=== PATIENT | male | born 2000 | race Caucasian/White ===

== ENCOUNTER 2025-01-28 21:30 | Emergency (ER) | payer OTHER ==
[~2025-01-28] VITALS: Ht 170.2 cm; Wt 96.0 kg
[2025-01-28 21:44] VITALS: O2SAT 97
[2025-01-28 23:21] LABS: BASOPHILS % 0.3 % (0.0-2.0); EOSINOPHILS % 0.4 % (0.0-5.0); HEMATOCRIT. 43.9 % (42.0-52.0); HEMOGLOBIN. 14.5 g/dL (14.0-18.0); LYMPHOCYTES % 13.7 % (20.0-50.0); MEAN CORPUSCULAR HEMOGLOBIN 26.6 pg (28.0-32.0); MEAN CORPUSCULAR VOLUME 80.7 fL (80.0-94.0); MEAN PLATELET VOLUME 8.6 fl (7.4-10.4); MONOCYTES % 4.1 % (2.0-8.0); NEUTROPHILS % 81.5 % (40.0-76.0); PLATELET 283 x1000/uL (130-400); RED BLOOD CELL COUNT 5.43 mill/uL (4.7-6.1); RED CELL DISTRIBUTION WIDTH 13.7 % (11.6-14.6); WHITE BLOOD COUNT 13.7 x1000/uL (4.5-11.0)
[2025-01-28 23:23] LABS: CHLORIDE 109 mEq/L (98-107); POTASSIUM 3.9 mEq/L (3.5-5.1); SODIUM 144 mEq/L (136-145)
[2025-01-28 23:24] LABS: CALCIUM 9.1 mg/dL (8.7-10.4); CARBON DIOXIDE 23 mEq/L (21-32)
[2025-01-28 23:29] LABS: GLUCOSE 112 mg/dL (70-105); UREA NITROGEN BLOOD 12 mg/dL (9-23)
[2025-01-28 23:30] LABS: ETHANOL BLOOD 156 mg/dL (<10)
[2025-01-28 23:31] LABS: ALANINE AMINOTRANSFERASE 65 IU/L (10-49); ALBUMIN 4.8 g/dL (3.2-4.8); ASPARTATE AMINOTRANSFERASE 37 IU/L (<34)
[2025-01-28 23:32] LABS: BILIRUBIN TOTAL 0.3 mg/dL (0.1-1.0); PROTEIN TOTAL 7.3 g/dL (6.0-8.3)
[2025-01-28] MEDS: SODIUM CHLORIDE 0.9% 1,000 ML IV ONE (23:50)
[2025-01-29 02:35] VITALS: BP 113/55; PULSE 91; RESP 16; O2SAT 98
== END 2025-01-29 02:44 | disposition home or self-care (01) ==
LOC: ER 21:52
DX: F10.129 Alcohol abuse with intoxication, unspecified (principal); Y90.9 Presence of alcohol in blood, level not specified
CPT/HCPCS: 80053; 80320; 85025; 36415; 96360; 99284; 93005; J7030; Z7610; G0480